=== PATIENT | female | born 1990 | race Caucasian/White ===

== ENCOUNTER 2018-01-20 08:33 | Day surgery (SDC) | payer OTHER ==
[2018-01-17 08:33] VITALS: BMI 33.0
--- NOTE | 2018-01-17 09:00 | PAT Medication Instructions ---
Service Date Jan 17, 2018. Current Home Medication List Acetaminophen (Tylenol), 1,000 MG PO PRN Melatonin (Melatonin Maximum Strengt), 1 TAB PO HS PRN for PRN Medication Instructions For Your Scheduled Surgery - Take the following medications the morning of surgery with a sip of water: Acetaminophen (Tylenol), 1,000 MG PO PRN (if needed, can be taken up to four hours before surgery) - Take the following medications as scheduled the night before surgery: Acetaminophen (Tylenol), 1,000 MG PO PRN (if needed) Melatonin (Melatonin Maximum Strengt), 1 TAB PO HS PRN (if needed) If you have any questions please call us at [phone] or [phone] or [phone]
[~2018-01-20] VITALS: Ht 172.7 cm; Wt 99.9 kg
[~2018-01-20 08:33] MED LIST: ACET-1256 PO; CEFAZOLIN 2000MG IV PUSH 15 ML IV SCH; LACTATED RINGER'S 1000ML 1,000 ML IV SCH; MELATAB2 PO
[2018-01-20 09:09] VITALS: BP 133/74; PULSE 89; TEMP 37.3; O2SAT 98; Ht 172.7 cm; Wt 99.9 kg
[2018-01-20] MEDS ORDERED: FENTANYL CITRATE INJ 50 MCG/1 ML 2 ML VIAL ONE ×2 (09:51→11:10)
[2018-01-20] MEDS ORDERED: MIDAZOLAM HCL 1 MG/ML 2ML VIAL ONE (09:51)
--- NOTE | 2018-01-20 10:21 | History & Physical Bridge Note ---
H&P Re-Evaluation Bridge Note: I have examined the patient, reviewed the History & Physical and in the interval since the performance of the History & Physical I have noted the following changes of clinical significance: No changes noted
[2018-01-20] MEDS ORDERED: BACITRACIN OINT 15 GM TUBE ONE (10:28)
[2018-01-20] MEDS ORDERED: BUPIVACAINE 0.5 % 5 MG/1 ML MPF 30ML VIAL ONE (10:28)
[2018-01-20] MEDS ORDERED: LIDOCAINE HCL 1% 20 ML VIAL ONE (10:28)
[2018-01-20] MEDS ORDERED: HYDROmorphone INJ 0.5 MG/0.5 ML SYR IV PRN (10:30)
[2018-01-20] MEDS ORDERED: ONDANSETRON INJ 2 MG/ML 2 ML VIAL IV PRN ×2 (10:30→12:15)
[2018-01-20] MEDS ORDERED: ATROPINE SULFATE 0.1 MG/ML 5ML SYR IV PRN (10:30)
[2018-01-20] MEDS ORDERED: NALOXONE HCL 0.4 MG/1 ML VIAL/CARP IV PRN (10:30)
[2018-01-20] MEDS ORDERED: PROMETHAZINE HCL INJ 12.5 MG in SODIUM CHLORIDE 0.9% 50ML 50 ML IV PRN (10:30)
[2018-01-20] MEDS ORDERED: FLUMAZENIL 0.1 MG/1 ML 10 ML VIAL IV PRN (10:30)
[2018-01-20] MEDS ORDERED: EpHEDrine SULFATE INJ 50 MG/ML AMP IV PRN (10:30)
[2018-01-20] MEDS ORDERED: DEXAMETHASONE SOD INJ 4 MG/ML VIAL ONE (11:18)
[2018-01-20] MEDS ORDERED: GLYCOPYRROLATE INJ 0.2 MG/ML VIAL ONE (11:18)
[2018-01-20] MEDS ORDERED: DiphenhydrAMINE HCL 50 MG/ML VIAL ONE (11:18)
[2018-01-20] MEDS ORDERED: ONDANSETRON INJ 2 MG/ML 2 ML VIAL ONE (11:18)
[2018-01-20] MEDS ORDERED: PROPOFOL IV EMULSION 10 MG/ML 20 ML VIAL IV ONE (11:18)
[2018-01-20] MEDS ORDERED: NEOSTIGMINE METHYLSULFATE 5 MG/5 ML SYR ONE (11:18)
[2018-01-20] MEDS ORDERED: LIDOCAINE HCL 2% 2 ML VIAL (20MG/ML) ONE (11:18)
[2018-01-20] MEDS ORDERED: HYDROmorphone INJ 2 MG/ML SYR/VIAL ONE (11:19)
[2018-01-20] MEDS ORDERED: ROCURONIUM BROMIDE 10 MG/ML 5 ML VIAL IV ONE (11:35)
[2018-01-20] MEDS ORDERED: KETOROLAC TROMETHAMINE 30 MG/ML VIAL ONE (11:49)
--- NOTE | 2018-01-20 11:54 | [facility] Post Operative Brief Note ---
Immediate Operative Summary Operative Date Jan 20, 2018. Pre-Operative Diagnosis chronic Cholecystitis, Cholelithiasis Post-Operative Diagnosis Same as preoperative. Procedure(s) Performed Laparascopic Cholecystectomy Surgeon Dr. Castle Drafter Electrical Surgeon(s) Aisha Ortiz PA-C Estimated Blood Loss 10ml Findings Consistent with Post-Op Diagnosis Fluids (cc crystalloids) 1200ml Specimens A.) Gallbladder Drains None Anesthesia Type General Complication(s) none Disposition Accompanied Pt To Recover: yes Disposition: Recovery Room / PACU
[2018-01-20] MEDS ORDERED: ACETAMINOPHEN 325 MG TAB PO PRN (12:15)
[2018-01-20] MEDS ORDERED: MoRPHine SULFATE 4 MG/ML 1 ML CARP\\VIAL IV PRN (12:15)
[2018-01-20] MEDS ORDERED: MoRPHine SULFATE 2 MG/ML CARP IV PRN ×2 (12:15)
[2018-01-20] MEDS ORDERED: OXYCODONE/ACETAMINOPHEN 5-325 TAB PO PRN ×2 (12:15)
[2018-01-20] MEDS ORDERED: OXYC-57 PO (12:15)
--- NOTE | 2018-01-20 12:21 | Discharge Instructions ---
Discharge Instructions Date of Service Jan 20, 2018. Admission Reason for Admission: Cholelithiasis Discharge Discharge Diagnosis / Problem: same Discharge Goals Goal(s): Decrease discomfort, Improve function Activity Recommendations Activity Limitations: per Instructions/Follow-up section No heavy lifting over 20 pounds for 3-4 weeks No strenuous activity until cleared by surgeon No submerging incisions underwater for 2 weeks (no bathing, swimming, or hot tubs) No driving while taking narcotic pain medication or until you are pain free . Instructions / Follow-Up Instructions / Follow-Up You may shower in 4 days, sponge bath and wash hair in meantime. Try to keep dressings clean and dry. After 4 days, remove outer dressings and shower. Leave steri strips on incisions for 7 days and then remove. They may fall off on their own that is okay. Walking and light activity is encouraged to prevent blood clots from forming You will be given narcotic pain medication (Percocet) to take as needed for moderate to severe pain. Please take only as directed. This medication may make you drowsy and can cause constipation. Take OTC stool softener (such as Colace), drink plenty of water, and you may even take gentle laxative and prune juice as needed to combat constipation. You may take extra strength Ibuprofen as needed for mild pain. Follow-up in surgical office in 2 weeks, please call office at [phone] if you do not already have an appointment Current Hospital Diet Patient's current hospital diet: Discharge Diet Recommended Diet: Regular Diet Procedures Procedures Performed: Laparascopic Cholecystectomy Pending Studies Studies pending at discharge: yes List of pending studies: gallbladder pathology Medical Emergencies . Who to Call and When: Medical Emergencies: If at any time you feel your situation is an emergency, please call 911 immediately. . Non-Emergent Contact Non-Emergency issues call your: Primary Care Provider Call Non-Emergent contact if: you have a fever, temperature is above 101, your pain is not controlled, your pain is worsening, your pain is unusual for you, wound has increased drainage, wound has increased redness, wound has increased pain . "Provider Documentation" section prepared by Aisha Ortiz. . [place] Drug Monitoring Program Search Results: patient reviewed within database, no issues identified
--- NOTE | 2018-01-20 12:55 | OPERATIVE REPORT ---
DATE OF OPERATION: 01/20/2018 PREOPERATIVE DIAGNOSIS: Chronic cholecystitis, cholelithiasis. POSTOPERATIVE DIAGNOSIS: Chronic cholecystitis, cholelithiasis. OPERATION: Laparoscopic cholecystectomy. SURGEON: Chris Castle MD GRASSLAND CONSERVATIONIST: Aisha Ortiz PA-C ANESTHESIA: General. ESTIMATED BLOOD LOSS: About 10 mL. FINDINGS: Chronic cholecystitis, cholelithiasis. COMPLICATIONS: None. INDICATIONS FOR THE PROCEDURE: This is a 27-year-old female who presented with right upper quadrant pain. The patient had ultrasound showing chronic cholecystitis with gallstone. The patient will be required to do a laparoscopic cholecystectomy, possible open, possible cholangiogram. I did talk to the patient about the benefit and risk, alternate procedure. I indicated the risks may include but not limited such as bleeding, infection, injury to common bile duct, injury to bowel, bile leak, may need ERCP. The patient understands. She signed informed consent and I answered all questions. DETAILS OF PROCEDURE: We brought the patient to the OR, put the patient in the supine position. The patient received SCD on bilateral legs to prevent DVT. Also, patient received 2 g Ancef IV for prophylactic antibiotics. The patient received general anesthesia without difficulty. The abdomen was appropriately draped in routine sterile fashion. After time out, I injected the local anesthesia by using 1% lidocaine mixed with 0.5% Marcaine just above the umbilical. Then I made a small incision just above umbilical, opened fascia, and opened peritoneum under direct vision. I put a Elio trocar in, connected to CO2 to create pneumoperitoneum. Flow rate is 6 L per minute. Pressure not more than 14 mmHg. Once we got a nice pneumoperitoneum, we put the camera in to look around the abdomen, shows normal finding on the stomach, small bowel, large bowel, liver; however, the gallbladder shows chronic cholecystitis, gallbladder wall edema and thickening. Then, we put another 3.5 mm trocar on the right upper quadrant. Once all trocars in, we put a grasper in to hold the base of the gallbladder, put direction to the diaphragm and put another grasper in to hold the pouch of gallbladder, put the latter to expose the triangle of Calot. The cystic duct was identified and mobilized. I put two 5 mm metal clip on the proximal cystic duct, one on the distal cystic duct then used the scissor transecting the cystic duct. Then the cystic artery was identified and mobilized. I put two 5 mm metal clip on the proximal cystic artery around the distal cystic artery. Then I used the scissor transecting the cystic artery. We checked, no active bleeding. Then I used Bovie to take down the gallbladder from the liver bed. We checked, no bile leaking and no active bleeding and then we removed the gallbladder through the catch bag. Then we reinserted Elio trocar in, connected to CO2 to create pneumoperitoneum, again looked around the abdomen, no active bleeding and no bile leak from liver bed. Then we removed all trocars under direct vision. No active bleeding from trocar sites. Pneumoperitoneum was released. Then I closed the umbilical incision and fascial layer by using 1 Vicryl figure of eight x2, closed the subcutaneous layer by using 2-0 Vicryl interruptedly, and closed skin by using 4-0 Vicryl. I then closed another 3.5 mm trocar site and the skin only by using 4-0 Vicryl. Then, we put the dressing on. The patient tolerated the procedure well. All the instrument, needle, and sponge count correct x2 at the end of the case. The patient transferred to recovery room in stable condition. Specimen sent to pathology. After procedure, I did talk to the patient and family member about OR finding and procedure we did, they understand. I also gave them the postoperative care instructions. I attest to the content of the Intraoperative Record and any orders documented therein. Any exception s are noted below.
[2018-01-20 13:00] VITALS: BP 123/59; PULSE 83; TEMP 37; O2SAT 97
--- NOTE | 2018-01-20 13:07 | Anesthesiology Progress Note ---
Anesthesia Post Op Note Date & Time Jan 20, 2018 at 13:07 Vital Signs Pain Intensity: 2 Vital Signs Past 12 Hours Date Time Temp Pulse Resp B/P (MAP) Pulse Ox O2 Delivery O2 Flow Rate FiO2 01/20/18 12:40 75 20 130/72 100 Room Air 01/20/18 12:30 85 16 131/63 100 Oxymask 10 01/20/18 12:20 73 20 133/66 100 Oxymask 10 01/20/18 12:13 37.1 72 20 137/56 99 Oxymask 10 01/20/18 09:09 37.3 89 22 133/74 (93) 98 Room Air Notes Mental Status: alert / awake / arousable, participated in evaluation Pt Amnestic to Procedure: Yes Nausea / Vomiting: adequately controlled Pain: adequately controlled Airway Patency, RR, SpO2: stable & adequate BP & HR: stable & adequate Hydration State: stable & adequate Anesthetic Complications: no major complications apparent
[2018-01-20] MEDS ORDERED: OXYCODONE/ACETAMINOPHEN 5-325 TAB ONE (13:12)
[2018-01-20] MEDS ORDERED: LACTATED RINGER'S 1000ML 1,000 ML IV SCH (13:15)
[2018-01-20 13:30] VITALS: BP 127/65; PULSE 86; TEMP 37.2; O2SAT 99
[2018-01-20 13:57] VITALS: BP 118/61; PULSE 83; TEMP 37; O2SAT 97
[2018-01-21] MEDS ORDERED: CEFAZOLIN SOD 2000MG/15 ML IV PUSH IV ONE (06:00)
== END 2018-01-20 14:15 | disposition home or self-care (01) ==
LOC: C.ACU 08:33
PROVIDERS: ATTEND Surgery
DX: K80.10 Calculus of gallbladder with chronic cholecystitis without obstruction (principal); G51.0 Bell's palsy; E66.9 Obesity, unspecified; F17.200 Nicotine dependence, unspecified, uncomplicated; Z98.890 Other specified postprocedural states; Z83.3 Family history of diabetes mellitus